=== PATIENT | male | born 1990 | race Caucasian/White ===

== ENCOUNTER → 2022-09-20 | Emergency (ER) | payer SELFPAY ==
[~2022-09-20] VITALS: Ht 175.3 cm; Wt 122.5 kg
[~2022-09-20] MED LIST: DOXY100T2 PO; IBUP-1969 PO; IBUPROFEN 600 MG TABLET PO ONE; cefTRIAXone 250 MG VIAL IM ONE
[2022-09-20 06:30] VITALS: BP_SYST 163
[2022-09-20 07:19] LABS: BILIRUBIN,URINE NEGATIVE (NEGATIVE); BLOOD, URINE NEGATIVE (NEGATIVE); CLARITY/URINE CLEAR (CLEAR); COLOR,URINE YELLOW (YELLOW); GLUCOSE,URINE NEGATIVE (NEGATIVE); KETONES,URINE NEGATIVE (NEGATIVE); LEUKOCYTE ESTERASE ,URINE NEGATIVE (NEGATIVE); NITRITE, URINE NEGATIVE (NEGATIVE); PROTEIN URINE NEGATIVE (NEGATIVE); UROBILINOGEN,URINE 0.2 (0.2-1.0)
== END | disposition home or self-care (01) ==
LOC: SED 06:23
DX: N45.1 Epididymitis (principal); N50.811 Right testicular pain; N50.812 Left testicular pain; I10 Essential (primary) hypertension; Z79.899 Other long term (current) drug therapy
CPT/HCPCS: 99285; 36415; 76870; 96372; 87491; 81003; J0696